=== PATIENT | female | born 1970 | race African-American/Black ===

== ENCOUNTER 2019-06-02 13:56 | Emergency (ER) | payer MEDICAID ==
[~2019-06-02] VITALS: Ht 182.9 cm; Wt 186.0 kg
[2019-06-02] MEDS ORDERED: SODIUM CHLORIDE 0.9% 1,000 ML IV ONE (14:57)
[2019-06-02] MEDS ORDERED: ONDANSETRON HCL 4MG/2ML INJ IV ONE (15:30)
[2019-06-02] MEDS ORDERED: HYDROCODONE/ACETAMINOPHEN 5/325MG TABLET PO ONE (15:30)
[2019-06-02 15:34] LABS: BASOPHILS % 0.4 % (0.0-2.0); EOSINOPHILS % 1.8 % (0.0-5.0); HEMATOCRIT. 37.9 % (36.0-48.0); LYMPHOCYTES % 21.2 % (20.0-50.0); MEAN CORPUSCULAR HEMOGLOBIN 22.6 pg (28.0-32.0); MEAN CORPUSCULAR VOLUME 71.2 fL (81.0-99.0); MEAN PLATELET VOLUME 8.4 fl (7.4-10.4); MONOCYTES % 10.9 % (2.0-8.0); NEUTROPHILS % 65.7 % (40.0-76.0); PLATELET 289 x1000/uL (130-400); RED BLOOD CELL COUNT 5.32 mill/uL (4.2-5.4)
[2019-06-02 15:38] LABS: CHLORIDE 106 mEq/L (98-107)
[2019-06-02 15:40] LABS: PROTHROMBIN TIME 10.7 sec (9.6-11.0)
[2019-06-02 15:48] LABS: B-HCG QUANTITATIVE < 1 mIU/mL (<3)
[2019-06-02 17:12] LABS: CLARITY URINE CLEAR (CLEAR); COLOR URINE YELLOW (YELLOW); KETONES URINE NEGATIVE (NEGATIVE); LEUKOCYTE ESTERASE URINE 1+ (NEGATIVE); NITRITE URINE NEGATIVE (NEGATIVE); OCCULT BLOOD URINE 3+ (NEGATIVE); PH URINE 7.5 (4.5-8.0); PROTEIN URINE 1+ (NEGATIVE)
[2019-06-02 17:15] VITALS: BP 162/90
== END 2019-06-02 18:18 | disposition home or self-care (01) ==
LOC: ER 14:47
DX: N93.8 Other specified abnormal uterine and vaginal bleeding (principal); G89.29 Other chronic pain; M54.5 Low back pain; M54.30 Sciatica, unspecified side; N39.0 Urinary tract infection, site not specified; D25.9 Leiomyoma of uterus, unspecified
CPT/HCPCS: 36415; 71045; 76856; 80053; 81003; 84484; 84702; 85025; 85610; 86850; 86900; 86901; 93005; 96374; 99285; J2405; J7030